=== PATIENT | male | born 1985 | race Caucasian/White ===

== ENCOUNTER 2017-01-14 14:45 | Emergency (ER) | payer BC, OTHER ==
[~2017-01-14] VITALS: Wt 110.0 kg
[~2017-01-14 14:45] MED LIST: HYDR-762 PO; [UNRECOGNIZED DRUG - OTHER]
[2017-01-14] MEDS ORDERED: KETOROLAC 15 MG INJ IM STA (15:06)
--- NOTE | 2017-01-14 15:12 | ERD ---
ER Documentation Chief Complaint Date/Time DATE: 01/14/17 TIME: 15:09 Chief Complaint CHRONIC BACK PAIN HPI 31-year-old male history of chronic lumbar back pain who presents with exacerbation of lumbar back pain. He describes an exacerbation with that is moderate to severe to the lumbar back that is worse with movement. Pain is very similar to chronic pain in the past. No bowel or bladder incontinence and retention. The patient states that he ran out of his Percocet and does not follow up with the prescribing provider until Monday. He is asking for IV or IM morphine. ROS All systems reviewed and are negative except as per history of present illness. Medications Home Meds Reported Medications [somax] No Conflict Check, as neede 05/31/13 Hydrocodone Bit-Acetaminophen* ([place]*) 1 Tab Tablet, 1 TAB PO 05/31/13 Allergies Allergies: Coded Allergies: No Known Allergy (Unverified , 05/31/13) PMhx/Soc History of Surgery: No Anesthesia Reaction: No Hx Neurological Disorder: No Hx Respiratory Disorders: No Hx Cardiac Disorders: No Hx Psychiatric Problems: No Hx Miscellaneous Medical Probl: Yes (bulging disk L4-L5) Hx Alcohol Use: No Hx Substance Use: No Hx Tobacco Use: No Smoking Status: Never smoker Physical Exam Vitals Vital Signs Date Time Temp Pulse Resp B/P Pulse Ox O2 Delivery O2 Flow Rate FiO2 01/14/17 14:47 98.0 102 18 136/80 99 Physical Exam General: Well developed, well nourished, no acute distress Head: Normocephalic, atraumatic. Eyes: EOM intact ENT: Moist mucous membranes Neck: Full ROM Respiratory: No respiratory distress Cardiovascular: Good capillary refil Abdominal: Nondistended : Deferred MSK: No edema, no unilateral swelling, 5/5 strength, no midline tenderness deformities or step-offs of the thoracolumbar spine. Neurologic: Alert and oriented, moving all extremities, normal speech, steady gait Skin: No rash Psych: Normal mood Results 24 hrs Current Medications Medications (Trade) Dose Ordered Sig/Tae Route PRN Reason Start Time Stop Time Status Last Admin Dose Admin Acetaminophen/ Hydrocodone Bitart ([place] (10/325)) 1 tab ONCE ONCE PO 01/14/17 15:30 01/14/17 15:31 Ketorolac Tromethamine (Toradol) 15 mg ONCE STAT IM 01/14/17 15:06 01/14/17 15:07 DC Procedures/MDM The patient's low back pain is unlikely related to serious etiology. The patient exhibits no clinical signs or symptoms and has no history or risk factors to suggest cauda equina, cord compression, epidural abscess, epidural hematoma, acute aortic aneurysm or dissection. The patient's CURES database dose show a single prescriber of narcotic pain medication. The patient is asking for IV and IM narcotics for his chronic pain. I recommend against this. The patient will be given Toradol will be given a single tablet of [place]. I will not fill a prescription for narcotics for this patient as he follows up with his pain specialist and prescribing provider on Monday. I advised the repeat visits to the emergency room for IV and IM narcotics are unlikely to be necessary. The patient should follow-up with primary care physician in a single prescriber for refill of medications. We discussed follow up with the patient's primary care doctor within 24 to 48 hours as needed. We also discussed return to the emergency room for worsening symptoms or worsening condition. Outpatient referral: None required Discharge Medications: None Departure Diagnosis: Primary Impression: Chronic back pain Back pain location: low back pain Back pain laterality: bilateral Sciatica presence: without sciatica Qualified Code: M54.5 - Chronic bilateral low back pain without sciatica Condition: Stable Patient Instructions: Chronic Pain Referrals: [facility] YOU HAVE RECEIVED A MEDICAL SCREENING EXAM AND THE RESULTS INDICATE THAT YOU DO NOT HAVE A CONDITION THAT REQUIRES URGENT TREATMENT IN THE EMERGENCY DEPARTMENT. FURTHER EVALUATION AND TREATMENT OF YOUR CONDITION CAN WAIT UNTIL YOU ARE SEEN IN YOUR DOCTORS OFFICE WITHIN THE NEXT 1-2 DAYS. IT IS YOUR RESPONSIBILITY TO MAKE AN APPOINTMENT FOR FOLOW-UP CARE. IF YOU HAVE A PRIMARY DOCTOR --you should call your primary doctor and schedule an appointment IF YOU DO NOT HAVE A PRIMARY DOCTOR YOU CAN CALL OUR PHYSICIAN REFERRAL HOTLINE AT IF YOU CAN NOT AFFORD TO SEE A PHYSICIAN YOU CAN CHOSE FROM THE FOLLOWING [facility] [address] [facility] [address] [facility] [address] [facility] [address] [facility] [address] [facility]. [facility] [address] [facility] [address]. [facility] YOU HAVE RECEIVED A MEDICAL SCREENING EXAM AND THE RESULTS INDICATE THAT YOU DO NOT HAVE A CONDITION THAT REQUIRES URGENT TREATMENT IN THE EMERGENCY DEPARTMENT. FURTHER EVALUATION AND TREATMENT OF YOUR CONDITION CAN WAIT UNTIL YOU ARE SEEN IN YOUR DOCTORS OFFICE WITHIN THE NEXT 1-2 DAYS. IT IS YOUR RESPONSIBILITY TO MAKE AN APPOINTMENT FOR FOLOW-UP CARE. IF YOU HAVE A PRIMARY DOCTOR --you should call your primary doctor and schedule and appointment IF YOU DO NOT HAVE A PRIMARY DOCTOR YOU CAN CALL OUR PHYSICIAN REFERRAL HOTLINE AT . IF YOU CAN NOT AFFORD TO SEE A PHYSICIAN YOU CAN CHOSE FROM THE FOLLOWING [facility] INSTITUTIONS: [facility] [address] [place] [address] [facility] [address] [place] [address] [facility] [address] [place] [address] Additional Instructions: Call your primary care doctor TOMORROW for an appointment during the next 1 WEEK.Tell the dental secretary that you were referred from this facility.See the doctor sooner or return here if your condition worsens before your appointment time. MARINO BOTELLO MD Jan 14, 2017 15:12
[2017-01-14] MEDS ORDERED: HYDROCODONE/APAP (10/325) TAB PO ONE (15:30)
== END 2017-01-14 15:42 | disposition home or self-care (01) ==
LOC: FTE 14:45
DX: M54.5 Low back pain (principal)
CPT/HCPCS: 96372; J1885; Z7502; Z7610